=== PATIENT | male | born 1955 | race Caucasian/White ===

== ENCOUNTER 2017-03-22 11:51 | Emergency (ER) | payer OTHER ==
[2017-03-22 12:12] VITALS: BP 134/73
--- NOTE | 2017-03-22 12:37 | UC ---
Eye Complaint HPI - HPI Summary HPI Summary: 61 y/o male presents to the urgent care c/o his left eye redness with itchiness since yesterday. Pt reports this morning is worse with clear eye discharge and he has been rubbing his eye constantly. Patient denies eye pain, fever, MENDOZA , N/V/D, visual disturbances, SOB, chest pain. He states he recently got a cat. - History of Current Complaint Chief Complaint: UCEye Stated Complaint: EYE IRRITATION Time Seen by Provider: 03/22/17 12:17 Hx Obtained From: Patient Onset/Duration: Gradual Onset, Lasting Days - since yesterday, Still Present Timing: Days Severity Initially: Mild Severity Currently: Moderate Pain Intensity: 0 Pain Scale Used: 0-10 Numeric Location of Injury: Conjunctiva, Eye Lid (lower), Eye Lid (upper) Aggravating Factor(s): Other - rubbing the eye Alleviating Factor(s): Nothing Associated Signs And Symptoms: Positive: Drainage (Clear). Negative: Photophobia, Fever, Swelling - Risk Factors Penetrating Injury Risk Factor: Negative Acute Glaucoma Risk Factors: Negative Optic Artery Occlusion Risk Factors: Negative - Allergies/Home Medications Allergies/Adverse Reactions: Allergies Allergy/AdvReac Type Severity Reaction Status Date / Time No Known Allergies Allergy Verified 03/22/17 12:12 PMH/Surg Hx/FS Hx/Imm Hx Previously Healthy: Yes - Surgical History Surgical History: Yes Surgery Procedure, Year, and Place: 2 surgeries right knee [facility] 2013, 2 surgery left knee [facility], right shoulder, appendix - Family History Known Family History: Positive: Hypertension - Social History Occupation: Employed Full-time Lives: With Family Alcohol Use: Occasionally Substance Use Type: None Smoking Status (MU): Never Smoked Tobacco - Immunization History Most Recent Tetanus Shot: 2010 Review of Systems Constitutional: Negative Skin: Negative Eyes: Eye Redness ENT: Negative Respiratory: Negative Cardiovascular: Negative Gastrointestinal: Negative Genitourinary: Negative Motor: Negative Neurovascular: Negative Musculoskeletal: Negative Neurological: Negative Psychological: Negative All Other Systems Reviewed And Are Negative: Yes Physical Exam Triage Information Reviewed: Yes Appearance: Well-Appearing, No Pain Distress, Well-Nourished, Thin Vital Signs: Initial Vital Signs Temp 97.8 F 03/22/17 12:09 Pulse 66 03/22/17 12:09 Resp 16 03/22/17 12:09 BP 134/73 03/22/17 12:09 Pulse Ox 100 03/22/17 12:09 Vital Signs Reviewed: Yes Eyes: Positive: Conjunctiva Inflamed - Left eye with mild injected conjunctiva at the medial side, scant clear eye discharge observed and lower eyelid with mild erythema. No swelling noted. B/L PERRLA, EOMI, B/L fundi grossly normal, Vision 20/20 with eye glases. No tenderness on palption B/L ENT Exam: Normal ENT: Positive: Normal ENT inspection, Hearing grossly normal, Pharynx normal, TMs normal Neck exam: Normal Neck: Positive: Supple, Nontender, No Lymphadenopathy Respiratory Exam: Normal Respiratory: Positive: Chest non-tender, Lungs clear, Normal breath sounds Cardiovascular Exam: Normal Cardiovascular: Positive: RRR, No Murmur, Pulses Normal Abdominal Exam: Normal Abdomen Description: Positive: Nontender, No Organomegaly, Soft Bowel Sounds: Positive: Present Musculoskeletal Exam: Normal Musculoskeletal: Positive: Strength Intact, ROM Intact Neurological Exam: Normal Psychological Exam: Normal Skin Exam: Normal Eye Complaint Course/Dx - Course Course Of Treatment: Left eye with redness and itchiness: Hx obtained. Abnormal PE findings:Left eye with mild injected conjunctiva at the medial side , scant clear eye discharge observed and lower eyelid with mild erythema. No swelling noted. B/L PERRLA, EOMI, B/L fundi grossly normal, Vision 20/20 with eye glases. No tenderness on palption B/L. Most likely Allergic conjunctivitis. Pt Rx Patanol 1% opthalmic drops and Zyrtec PO to alleviate symptoms, Advise to wash both eye BID to remove allergens. Also advised if symptoms worsen or eye pain or MENDOZA develops to return to the urgent care of f/u with PCP for furhter evaluation and treatment. Pt understood and agreed. - Differential Dx/Diagnosis Differential Diagnosis/HQI/PQRI: Conjunctivitis, Corneal Abrasion, Foreign Body , Periorbital Cellulitis, Orbital Cellulitis, Uveitis Provider Diagnoses: Allergic Conjunctivitis Discharge - Discharge Plan Condition: Stable Disposition: HOME Prescriptions: Cetirizine* [ZyrTEC 10 MG TAB*] 10 mg PO DAILY #30 tab Olopatadine 0.1% OPHTH (NF) [Patanol 0.1% OPHTH (NF)] 1 drop BOTH EYES BID #1 btl Patient Education Materials: Conjunctivitis (ED) Referrals: Jose D Elliott MD [Primary Care Provider] - Additional Instructions: Please avoid allergens, take medications as instructed, If symptoms worsen and eye pain develops or headache please return to the urgent care or f/u with PCP for further evaluation and treatment.
== END 2017-03-22 12:42 | disposition home or self-care (01) ==
LOC: UCEAST 11:51
DX: H10.12 Acute atopic conjunctivitis, left eye (principal)
CPT/HCPCS: 99212; G0463

== ENCOUNTER 2017-07-05 15:03 | Emergency (ER) | payer OTHER ==
[2017-07-05 15:14] VITALS: BP 143/94
--- NOTE | 2017-07-05 15:56 | UC ---
Knee Pain HPI - HPI Summary HPI Summary: Patient presents s/p knee surgery perfromed by Dr. Cohen on 04/19/17 for a osteochondreal defect and has been recovering well. He stepped out of the truck this morning and he immediately felt pain in his knee. 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 He then he had even worse pain. He states he took it easy at his desk for the day because of the pain. He now presents for evaluation of this injury. He reports pain is 7/10, and there is knee swelling. Pain is worse with walking and improves at rest. - History of Current Complaint Chief Complaint: UCLowerExtremity Stated Complaint: KNEE INJURY WC Time Seen by Provider: 07/05/17 15:40 Hx Obtained From: Patient Onset/Duration: Sudden Onset Severity Initially: Moderate Severity Currently: Moderate Character: Aching Aggravating Factor(s): Movement, Weight Bearing Alleviating Factor(s): Rest Associated Signs And Symptoms: Positive: Negative Able to Bear Weight: Yes - Risk Factors Gout Risk Factor: Negative - Allergies/Home Medications Allergies/Adverse Reactions: Allergies Allergy/AdvReac Type Severity Reaction Status Date / Time No Known Allergies Allergy Verified 07/05/17 15:08 Home Medications: Home Medications Ibuprofen TAB* [Motrin TAB* 600 MG] 600 mg PO DAILY 07/05/17 [History Confirmed 07/05/17] PMH/Surg Hx/FS Hx/Imm Hx Previously Healthy: Yes - Surgical History Surgical History: Yes Surgery Procedure, Year, and Place: 2 surgeries right knee [facility] 2013, 2 surgery left knee [facility], right shoulder, appendix - Family History Known Family History: Positive: Hypertension, Other - brain anuersym - Social History Occupation: Employed Full-time Lives: Alone Alcohol Use: Occasionally Substance Use Type: None Smoking Status (MU): Never Smoked Tobacco - Immunization History Most Recent Tetanus Shot: 2010 Review of Systems Musculoskeletal: Decreased ROM, Edema, Myalgia All Other Systems Reviewed And Are Negative: Yes Physical Exam Triage Information Reviewed: Yes Appearance: Pain Distress Vital Signs: Initial Vital Signs Temp 98 F 07/05/17 15:10 Pulse 59 07/05/17 15:10 Resp 17 07/05/17 15:10 BP 143/94 07/05/17 15:10 Pulse Ox 99 07/05/17 15:10 Vital Signs Reviewed: Yes Eye Exam: Normal ENT Exam: Normal Neck exam: Normal Respiratory Exam: Normal Cardiovascular Exam: Normal Abdominal Exam: Normal Musculoskeletal: Positive: Strength Limited @ - left knee, ROM Limited @, Edema @ Skin Exam: Normal Knee Pain Course/Dx - Course Course Of Treatment: Patient presents s/p lef knee injury. Exam reveals effusion forming, and pain with felxion. He has decreased ROM. Neuro-vasc intact. Xrays were obtained and negative. Patient was encourage to wear his knee immobilizer and crutch walking. Follow up with Dr Mercado in two days. - Differential Dx/Diagnosis Differential Diagnosis/HQI/PQRI: Sprain, Other - knee pain Provider Diagnoses: strain. sprain. knee pain Discharge - Discharge Plan Condition: Stable Disposition: HOME Patient Education Materials: Swollen Knee Joint (ED), Knee Pain (ED) Referrals: Boone Rivera MD [Medical Doctor] - Jose D Elliott MD [Primary Care Provider] -
--- NOTE | 2017-07-05 16:51 | RAD ---
INDICATION: Knee pain stepping out of truck COMPARISON: Similar radiograph December 21, 2016 TECHNIQUE: 4 view radiograph of the left knee. FINDINGS: The visualized bones are well-corticated and properly aligned. The joint spaces are properly maintained. There is no radiographic evidence of joint effusion. There is no acute fracture, dislocation or other focal bony abnormality. IMPRESSION: Normal knee radiograph as described above. If the patient's symptoms persist, follow-up imaging is recommended.
== END 2017-07-05 16:45 | disposition home or self-care (01) ==
LOC: UCEAST 15:03
DX: S86.912A Strain of unspecified muscle(s) and tendon(s) at lower leg level, left leg, initial encounter (principal); S83.92XA Sprain of unspecified site of left knee, initial encounter; M25.562 Pain in left knee; X50.9XXA Other and unspecified overexertion or strenuous movements or postures, initial encounter; Y93.89 Activity, other specified; Y92.89 Other specified places as the place of occurrence of the external cause; Y99.0 Civilian activity done for income or pay
CPT/HCPCS: 99211; G0463